=== PATIENT | male | born 1940 | race Caucasian/White ===

== ENCOUNTER 2017-09-20 18:37 | Emergency (ER) | payer MEDICARE, BC ==
[~2017-09-20] VITALS: Ht 172.7 cm; Wt 100.2 kg
[~2017-09-20 18:37] MED LIST: AZIT500 PO; CITA20 PO; CYCL10 PO; DIAZ5 PO; DOCU100 PO; GABA300 PO; GABA600 PO; HYDCHL50 PO; IBUP600 PO; INSN100I SC; INSR10I SC; LOSA50 PO; MULVITA PO; MULVITMINF PO; Mobic15 MG PO; NITR.4SL SL; OMEP20ER PO; OXYACE5T PO; PIOG30 PO; PRAZ2 PO; ROSU10TA PO; RXOXYACE PO; TRAZ100 PO; TRAZ50; TRIA50 PO; TRIHYD5075 PO; Ultram50 MG PO
== END 2017-09-20 19:05 | disposition home or self-care (01) ==
LOC: ER 18:37
DX: I83.018 Varicose veins of right lower extremity with ulcer other part of lower leg (principal); I10 Essential (primary) hypertension; E11.9 Type 2 diabetes mellitus without complications; E78.5 Hyperlipidemia, unspecified; Z79.899 Other long term (current) drug therapy; Z87.891 Personal history of nicotine dependence
CPT/HCPCS: 99282

== ENCOUNTER 2019-09-14 17:01 | Emergency (ER) | payer MEDICARE, BC ==
[~2019-09-14] VITALS: Ht 172.7 cm; Wt 91.2 kg
== END 2019-09-14 17:50 | disposition home or self-care (01) ==
LOC: ER 17:01
DX: H92.01 Otalgia, right ear (principal); I10 Essential (primary) hypertension; E11.9 Type 2 diabetes mellitus without complications; E78.5 Hyperlipidemia, unspecified; Z79.899 Other long term (current) drug therapy; Z87.891 Personal history of nicotine dependence
CPT/HCPCS: 99282

== ENCOUNTER 2020-04-14 12:49 | Emergency (ER) | payer MEDICARE, BC ==
[~2020-04-14] VITALS: Ht 172.7 cm; Wt 90.7 kg
== END 2020-04-14 15:52 | disposition home or self-care (01) ==
LOC: ER 12:49
DX: S61.412A Laceration without foreign body of left hand, initial encounter (principal); S80.02XA Contusion of left knee, initial encounter; S80.211A Abrasion, right knee, initial encounter; I10 Essential (primary) hypertension; E11.9 Type 2 diabetes mellitus without complications; E78.5 Hyperlipidemia, unspecified; Z79.899 Other long term (current) drug therapy; Z87.891 Personal history of nicotine dependence; Z23 Encounter for immunization; W01.0XXA Fall on same level from slipping, tripping and stumbling without subsequent striking against object, initial encounter; Y93.01 Activity, walking, marching and hiking; Y92.480 Sidewalk as the place of occurrence of the external cause
CPT/HCPCS: 73562-LT; 90471; 90714; 99283-25

== ENCOUNTER 2020-04-29 19:09 | Emergency (ER) | payer OTHER, MEDICARE, BC ==
[~2020-04-29] VITALS: Ht 172.7 cm; Wt 90.7 kg
[2020-04-29] MEDS ORDERED: MECL25 PO (19:27)
[2020-04-29] MEDS ORDERED: LOSA25 PO (19:28)
[2020-04-29] MEDS ORDERED: METO25ER PO (19:28)
[2020-04-29] MEDS ORDERED: HYDCHL25 PO (19:28)
[2020-04-29] MEDS ORDERED: AMLO5 PO (19:29)
[2020-04-29] MEDS ORDERED: SERT25 PO (19:29)
[2020-04-29] MEDS ORDERED: SEROQUEL100 MG PO (19:30)
[2020-04-29 20:00] LABS: BASOPHILS ABSOLUTE AUTO 0.04 K/mm3 (0.00-0.23); BASOPHILS PERCENT AUTO 1 % (0-2); EOSINOPHILS ABSOLUTE AUTO 0.13 K/mm3 (0.00-0.68); EOSINOPHILS PERCENT AUTO 2 % (0-6); Hematocrit 44.6 % (37.0-53.0); Hemoglobin 14.4 g/dL (13.5-17.5); IMMATURE GRAN ABSOLUTE AUTO 0.03 K/mm3 (0.00-0.10); IMMATURE GRAN PERCENT AUTO 1 % (0-1); LYMPHOCYTES ABSOLUTE AUTO 1.57 K/mm3 (0.84-5.20); LYMPHOCYTES PERCENT AUTO 25 % (21-46); MONOCYTES ABSOLUTE AUTO 0.51 K/mm3 (0.16-1.47); MONOCYTES PERCENT AUTO 8 % (4-13); Mean Corpuscular HGB 30.6 pg (26.0-34.0); Mean Corpuscular HGB Conc 32.3 g/dL (31.5-36.5); Mean Corpuscular Volume 95 fL (80-100); Mean Platelet Volume 12.6 fL (9.1-12.4); NEUTROPHILS ABSOLUTE AUTO 4.01 K/mm3 (1.96-9.15); NEUTROPHILS PERCENT AUTO 64 % (41-73); Platelet Count 165 K/mm3 (150-400); RDW Coefficient Variation 12.2 % (11.7-14.2); RDW Standard Deviation 42.9 fL (35.1-46.3); Red Blood Cell Count 4.71 M/mm3 (4.30-5.90); White Blood Cell Count 6.29 K/mm3 (4.00-11.30)
[2020-04-29 20:13] LABS: Alanine Aminotransfer (ALT/SGP 23 U/L (12-78); Albumin, Blood 3.7 g/dL (3.4-5.0); Albumin/Globulin Ratio 1.2 (0.8-1.8); Alk Phos 84 U/L (50-136); Anion Gap 6 mmol/L (6-16); Aspartate Aminotrans (AST/SGOT 13 U/L (12-37); Bilirubin, Total 0.4 mg/dL (0.1-1.0); Blood Urea Nitrogen 37 mg/dL (8-24); Bun/Creatinine Ratio 21.3 (12.0-20.0); CO2, Blood 25 mmol/L (21-32); Calcium, Blood 9.6 mg/dL (8.5-10.1); Chloride, Blood 117 mmol/L (98-108); Creatinine, Blood 1.74 mg/dL (0.60-1.20); Globulin, Blood 3.1 g/dL (2.2-4.0); Glomerular Filtration Rate 41 (60-); Glucose, Blood 130 mg/dL (70-99); Magnesium, Blood 2.5 mg/dL (1.6-2.4); Potassium, Blood 4.4 mmol/L (3.5-5.5); Sodium, Blood 148 mmol/L (136-145); Total Protein, Blood 6.8 g/dL (6.4-8.2); Troponin I <0.015 ng/mL (0.000-0.040)
== END 2020-04-29 21:32 | disposition home or self-care (01) ==
LOC: ER 19:09
PROVIDERS: Emergency Medicine
DX: R07.9 Chest pain, unspecified (principal); M25.512 Pain in left shoulder; N28.9 Disorder of kidney and ureter, unspecified; I10 Essential (primary) hypertension; E11.9 Type 2 diabetes mellitus without complications; E78.5 Hyperlipidemia, unspecified; Z87.891 Personal history of nicotine dependence; Z79.899 Other long term (current) drug therapy
CPT/HCPCS: 36415; 71046; 80053; 83735; 83880; 84484; 85025; 93005; 93010; 96360; 99285-25; J7030

== ENCOUNTER 2024-06-24 09:33 | Emergency (ER) | payer OTHER ==
[~2024-06-24] VITALS: Ht 175.3 cm; Wt 72.6 kg
[~2024-06-24 09:33] MED LIST changes: +AMLO5 PO; +CEFP200 PO; +Crestor40 MG PO; +HYDCHL25 PO; +LOSA25 PO; +MECL25 PO; +METO25ER PO; +SEROQUEL100 MG PO; +SERT25 PO
[2024-06-24 10:19] VITALS: BP 190/75
[2024-06-24] MEDS ORDERED: NASAL SPRAY88 ML NS (10:34)
[2024-06-24] MEDS ORDERED: Flomax0.4 MG PO (10:34)
[2024-06-24] MEDS ORDERED: OXYM.05NI (10:35)
[2024-06-24] MEDS ORDERED: METF500 PO (10:35)
[2024-06-24] MEDS ORDERED: MEMA5TAB PO (10:35)
[2024-06-24] MEDS ORDERED: LEVSOD25 PO (10:36)
[2024-06-24] MEDS ORDERED: GABA300 PO (10:36)
[2024-06-24] MEDS ORDERED: Erythromycin 2%30 GM TP (10:37)
[2024-06-24] MEDS ORDERED: THERA-D2000 UNIT PO (10:38)
[2024-06-24] MEDS ORDERED: ASPI81CH PO (10:38)
[2024-06-24] MEDS ORDERED: ACET500 PO (10:39)
== END 2024-06-24 10:25 | disposition home or self-care (01) ==
LOC: ER 09:33
DX: T81.89XA Other complications of procedures, not elsewhere classified, initial encounter (principal); L98.499 Non-pressure chronic ulcer of skin of other sites with unspecified severity; E11.9 Type 2 diabetes mellitus without complications; I10 Essential (primary) hypertension; E78.5 Hyperlipidemia, unspecified; Z87.891 Personal history of nicotine dependence; Z79.890 Hormone replacement therapy; Z79.84 Long term (current) use of oral hypoglycemic drugs; Z79.82 Long term (current) use of aspirin; Z79.899 Other long term (current) drug therapy
CPT/HCPCS: 99282

== ENCOUNTER 2024-07-29 09:38 | Emergency (ER) | payer OTHER ==
[~2024-07-29] VITALS: Ht 167.6 cm; Wt 79.4 kg
[~2024-07-29 09:38] MED LIST changes: +ACET500 PO; +ASPI81CH PO; +Erythromycin 2%30 GM TP; +Flomax0.4 MG PO; +LEVSOD25 PO; +MEMA5TAB PO; +METF500 PO; +NASAL SPRAY88 ML NS; +OXYM.05NI; +THERA-D2000 UNIT PO
[2024-07-29 11:05] LABS: BASOPHILS ABSOLUTE AUTO 0.03 K/mm3 (0.00-0.23); BASOPHILS PERCENT AUTO 1 % (0-2); EOSINOPHILS ABSOLUTE AUTO 0.13 K/mm3 (0.00-0.68); EOSINOPHILS PERCENT AUTO 2 % (0-6); Hematocrit 43.4 % (37.0-53.0); Hemoglobin 14.6 g/dL (13.5-17.5); IMMATURE GRAN ABSOLUTE AUTO 0.01 K/mm3 (0.00-0.10); IMMATURE GRAN PERCENT AUTO 0 % (0-1); LYMPHOCYTES ABSOLUTE AUTO 1.42 K/mm3 (0.84-5.20); LYMPHOCYTES PERCENT AUTO 22 % (21-46); MONOCYTES ABSOLUTE AUTO 0.47 K/mm3 (0.16-1.47); MONOCYTES PERCENT AUTO 7 % (4-13); Mean Corpuscular HGB 31.5 pg (26.0-34.0); Mean Corpuscular HGB Conc 33.6 g/dL (31.5-36.5); Mean Corpuscular Volume 94 fL (80-100); Mean Platelet Volume 11.5 fL (9.1-12.4); NEUTROPHILS ABSOLUTE AUTO 4.43 K/mm3 (1.96-9.15); NEUTROPHILS PERCENT AUTO 68 % (41-73); Platelet Count 150 K/mm3 (150-400); RDW Coefficient Variation 11.9 % (11.7-14.2); Red Blood Cell Count 4.64 M/mm3 (4.30-5.90); White Blood Cell Count 6.49 K/mm3 (4.00-11.30)
[2024-07-29 11:28] LABS: Albumin, Blood 3.5 g/dL (3.4-5.0); Albumin/Globulin Ratio 1.2 (0.8-1.8); Bilirubin, Total 0.5 mg/dL (0.1-1.0); Creatinine, Blood 0.9 mg/dL (0.60-1.20); Globulin, Blood 2.9 g/dL (2.2-4.0); Potassium, Blood 4.2 mmol/L (3.5-5.5); Total Protein, Blood 6.4 g/dL (6.4-8.2)
[2024-07-29 13:16] VITALS: BP 159/66
== END 2024-07-29 13:17 | disposition home or self-care (01) ==
LOC: ER 09:38
PROVIDERS: Student in an Organized Health Care Education/Training Program
DX: Z04.3 Encounter for examination and observation following other accident (principal); I10 Essential (primary) hypertension; E11.9 Type 2 diabetes mellitus without complications; E78.5 Hyperlipidemia, unspecified; Z87.891 Personal history of nicotine dependence; Z79.84 Long term (current) use of oral hypoglycemic drugs; Z79.890 Hormone replacement therapy; Z79.899 Other long term (current) drug therapy
CPT/HCPCS: 80053; 85025; 99285

== ENCOUNTER 2025-06-03 12:44 | Inpatient (IN) | payer OTHER ==
[~2025-06-03] VITALS: Ht 165.1 cm; Wt 81.9 kg
[2025-06-03 13:54] LABS: BASOPHILS ABSOLUTE AUTO 0.04 K/mm3 (0.00-0.23); BASOPHILS PERCENT AUTO 0 % (0-2); EOSINOPHILS ABSOLUTE AUTO 0.08 K/mm3 (0.00-0.68); EOSINOPHILS PERCENT AUTO 1 % (0-6); Hematocrit 43.1 % (37.0-53.0); Hemoglobin 14.1 g/dL (13.5-17.5); IMMATURE GRAN ABSOLUTE AUTO 0.14 K/mm3 (0.00-0.10); IMMATURE GRAN PERCENT AUTO 1 % (0-1); LYMPHOCYTES ABSOLUTE AUTO 0.94 K/mm3 (0.84-5.20); LYMPHOCYTES PERCENT AUTO 7 % (21-46); MONOCYTES ABSOLUTE AUTO 0.77 K/mm3 (0.16-1.47); MONOCYTES PERCENT AUTO 6 % (4-13); Mean Corpuscular HGB Conc 32.7 g/dL (31.5-36.5); Mean Corpuscular Volume 90 fL (80-100); NEUTROPHILS ABSOLUTE AUTO 11.93 K/mm3 (1.96-9.15); NEUTROPHILS PERCENT AUTO 86 % (41-73); NRBC ABSOLUTE 0.00 K/mm3 (0.00-0.02); NRBC Auto 0.0 /100 WBC (0.0-0.2); Platelet Count 285 K/mm3 (150-400); RDW Coefficient Variation 11.9 % (11.7-14.2); RDW Standard Deviation 39.7 fL (35.1-46.3)
[2025-06-03 14:11] LABS: Alanine Aminotransfer (ALT/SGP 39.0 U/L (12-78); Albumin, Blood 2.5 g/dL (3.4-5.0); Albumin/Globulin Ratio 0.7 (0.8-1.8); Anion Gap 7.0 mmol/L (3-11); Aspartate Aminotrans (AST/SGOT 24.0 U/L (12-37); Bilirubin, Total 0.7 mg/dL (0.1-1.0); Blood Urea Nitrogen 33.0 mg/dL (8-24); CO2, Blood 30.0 mmol/L (21-32); Calcium, Blood 9.2 mg/dL (8.5-10.1); Chloride, Blood 100.0 mmol/L (98-108); Creatinine, Blood 1.01 mg/dL (0.60-1.20); Globulin, Blood 3.7 g/dL (2.2-4.0); Glucose, Blood 223.0 mg/dL (70-99); Potassium, Blood 3.4 mmol/L (3.5-5.5); Sodium, Blood 134.0 mmol/L (136-145); Total Protein, Blood 6.2 g/dL (6.4-8.2)
[2025-06-03 14:16] LABS: Magnesium, Blood 2.4 mg/dL (1.6-2.4)
[2025-06-03] MEDS ORDERED: Potassium Chloride 10 Meq Tablet SA PO ONE (15:45)
[2025-06-03] MEDS ORDERED: Ondansetron HCl 2 MG / ML 2ML Vial IV PRN (16:20)
[2025-06-03] MEDS ORDERED: FLU VACC TS2025(65UP)/MF59C/PF 45 MCG/0.5 ML SYRINGE IM SCH (16:20)
[2025-06-03] MEDS ORDERED: HydrALAZINE HCl 20 MG / ML 1ML Vial IV PRN (16:35)
[2025-06-03] MEDS ORDERED: Piperacillin/Tazobactam Sod 3.375 GM in NS 100 ML IV SCH (17:00)
--- NOTE | 2025-06-03 17:30 | NUR ---
PALLIATIVE CARE NOTE: CONSULT RECIEVED FOR AD/POLST. REVIEWED MEDICAL RECORD. NO POLST/AD FOUND ON FILE IN MEDICAL RECORD OR WITH OPR. PT AWAITING ROOM FOR ADMISSION. PT REPORTEDLY WAS FOUND DOWN ON GROUND BY DAUGHTER AND SENT TO ER DUE TO PT INABILITY TO CARE FOR SELF AT THIS TIME. HE ALSO HAS PERIANAL ABSCESS REQUIRING ABX TREATMENT.
[2025-06-03 17:45] LABS: Source, Urine Clean Catch
[2025-06-03 17:49] LABS: Bilirubin, Urine Neg (Neg); Color, Urine Yellow (P-Yellow); Glucose Qualitative, Urine 1+ (Neg); Ketones, Urine 2+ (Neg); Leukocyte Esterase, Urine 3+ (Neg); Protein, Urine 4+ (Neg); Specific Gravity, Urine 1.020 (1.003-1.022); Urobilinogen, Urine NORM (Normal)
[2025-06-03 17:59] LABS: Red Blood Cells, Urine 0-2 /hpf (0-2); White Blood Cells, Urine TNTC /hpf (0-5)
[2025-06-03 18:31] VITALS: BP 133/62
--- NOTE | 2025-06-03 18:36 | NUR ---
ARRIVAL TO SURG FLOOR TO FLOOR VIA GURNEY. A&O x1-2, ABLE TO IDENTIFY SELF & PLACE. PERIANAL ABCESS NOTED ON COCCYX w/GREEN PURULANT DRAINAGE. PICS IN CHART. ATTENDS IN PLACE. USES DENTURES - PRESENT ON ADMISSION. BILATERAL REDNESS ON HIPS & HEELS - PICS IN CHART. USES URINAL & BEDPAN FOR VOID. SNACKS & DRINKS GIVEN. PLAN FOR NPO @ 0000. CURRENTLY RESTING IN BED w/CALL LIGHT WITHIN REACH.
[2025-06-03 19:33] VITALS: BP 142/65
[2025-06-03] MEDS ORDERED: Lactobacil 2-S.Thermo-Bifido 1 1 Cap PO SCH (21:00)
[2025-06-03 23:59] VITALS: BP 128/51
[2025-06-04] VITALS (15 sets, daily range): BP systolic 113–172; BP diastolic 40–99
[2025-06-04 03:59] LABS: Hematocrit 38.5 % (37.0-53.0); Hemoglobin 12.9 g/dL (13.5-17.5); Mean Corpuscular HGB Conc 33.5 g/dL (31.5-36.5); Mean Corpuscular Volume 89 fL (80-100); NRBC ABSOLUTE 0.00 K/mm3 (0.00-0.02); NRBC Auto 0.0 /100 WBC (0.0-0.2); Platelet Count 247 K/mm3 (150-400); RDW Coefficient Variation 11.9 % (11.7-14.2); RDW Standard Deviation 38.8 fL (35.1-46.3)
[2025-06-04 04:33] LABS: Anion Gap 10.0 mmol/L (3-11); Blood Urea Nitrogen 32.0 mg/dL (8-24); CO2, Blood 25.0 mmol/L (21-32); Calcium, Blood 9.2 mg/dL (8.5-10.1); Chloride, Blood 103.0 mmol/L (98-108); Creatinine, Blood 1.0 mg/dL (0.60-1.20); Glucose, Blood 277.0 mg/dL (70-99); Potassium, Blood 3.2 mmol/L (3.5-5.5); Sodium, Blood 135.0 mmol/L (136-145)
--- NOTE | 2025-06-04 05:32 | NUR ---
SHIFT SUMMARY NO ACUTE EVENTS OVERNIGHT. PT A&OX1-2, UNKNOWN BASELINE. PT TOLERATED PO INTAKE FOR EVENING SNACK. PT NPO AT MIDNIGHT IN ANTICIPATION OF PROCEDURE TODAY. PT TELE [id number]. PT PHOTOS IN CHART FROM DAY SHIFT FOR ABSCESS AND L HIP.
[2025-06-04] MEDS ORDERED: Insulin Human Lispro 100 Units/ML 3ML Syringe SC SCH ×2 (07:30→09:50)
[2025-06-04] MEDS ORDERED: Cholecalciferol 1000 Unit Tablet (=25MCG) PO SCH (09:00)
[2025-06-04] MEDS ORDERED: Enoxaparin 40 MG/0.4 ML SYR SC SCH (09:00)
[2025-06-04] MEDS ORDERED: Insulin Regular 100 UNIT/ML 10ML Vial SC SCH (09:20)
[2025-06-04] MEDS ORDERED: Bupivacaine 0.5% HCl 5 MG/ML 30MLVIAL ONE (15:17)
[2025-06-04] MEDS ORDERED: Rocuronium Bromide 10 MG/ML 5ML Injection IV ONE (15:27)
[2025-06-04] MEDS ORDERED: Ondansetron HCl 2 MG / ML 2ML Vial ONE (15:27)
[2025-06-04] MEDS ORDERED: Metoclopramide HCl 5MG / ML 2ML Vial ONE (15:27)
[2025-06-04] MEDS ORDERED: Ondansetron HCl 2 MG / ML 2ML Vial IV PRN (15:30)
--- NOTE | 2025-06-04 15:30 | NUR ---
PT TRANSPORTED TO [facility] VIA BED. DAUGHTER AT BEDSIDE TO HELP ANSWER QUESTIONS AND SIGN SURGICAL CONSENT. RING REMOVED, PLACED IN BAGGIE WITH PATIENT LABEL AND GIVEN TO DAUGHTER. LUNG SOUNDS CLEAR. PATIENT ALERT, APPROPRIATE. ABLE TO STATE NAME AND BIRTHDAY, UNSURE OF PLACE.
[2025-06-04] MEDS ORDERED: Morphine Sulfate 4 MG/1 ML Injection IV PRN (15:35)
[2025-06-04] MEDS ORDERED: HYDROmorphone HCl/Pf 1MG SYR IV PRN (15:35)
[2025-06-04] MEDS ORDERED: FentaNYL Citrate 50 MCG/ML 2 ML Injection IV PRN ×2 (15:35)
[2025-06-04] MEDS ORDERED: Sugammadex Sodium 200 MG/2ML SDV (100 MG/ML) ONE (16:10)
[2025-06-04] MEDS ORDERED: HYDROcodone 5-APAP 325 TAB PO PRN (16:30)
--- NOTE | 2025-06-04 18:19 | NUR ---
ARRIVAL TO SURG FLOOR TO FLOOR VIA HOSP BED AT APPROXIMATELY 1655. A&O x1-2, EASILY REDIRECTABLE, ABLE TO MAKE NEEDS KNOWN. STATES NO PAIN AT THIS TIME. COCCYX w/VERA DRESSING, C/D/I. SNACKS & DRINKS GIVEN. BED ALARM ON, CALL LIGHT WITHIN REACH.
[2025-06-04] MEDS ORDERED: NS 250 ML IV PRN (20:40)
[2025-06-04] MEDS ORDERED: Oxymetazoline 0.05% Nasal Relief Spray 15mL BTL PRN (21:00)
[2025-06-05 00:46] VITALS: BP 114/53
[2025-06-05] MEDS ORDERED: Piperacillin/Tazobactam Sod 3.375 GM in NS 100 ML IV SCH (03:00)
--- NOTE | 2025-06-05 03:59 | NUR ---
SHIFT SUMMARY PT S/P I&D OF ABCESS. PT HAS RESTED T/O THE NIGHT. PT CONFUSED AND WAS ANXIOUS AT THE START OF THE SHIFT. HITTING CALL LIGHT FREQUENTLY. PT ORIENTED TO SELF, AND PLACE. SPEECH MOSTLY NONSENSICAL, BUT FOLLOWS DIRECTIONS WELL. PT DENIES PAIN. VERA DRAIN WITH SS DISCHARGE. IV ANTIBIOTICS. VITALS STABLE. BED ALARM ON. BED IN LOWEST POSITION, CALL LIGHT WITHIN REACH.
[2025-06-05 04:43] VITALS: BP 122/50
[2025-06-05 05:26] LABS: Anion Gap 8.0 mmol/L (3-11); Blood Urea Nitrogen 21.0 mg/dL (8-24); CO2, Blood 28.0 mmol/L (21-32); Calcium, Blood 8.4 mg/dL (8.5-10.1); Chloride, Blood 108.0 mmol/L (98-108); Creatinine, Blood 0.99 mg/dL (0.60-1.20); Glucose, Blood 249.0 mg/dL (70-99); Potassium, Blood 3.5 mmol/L (3.5-5.5); Sodium, Blood 140.0 mmol/L (136-145)
[2025-06-05 07:24] VITALS: BP 161/55
[2025-06-05] MEDS ORDERED: Insulin Human Lispro 100 Units/ML 3ML Syringe SC SCH (07:30)
[2025-06-05 10:29] VITALS: BP 123/59
--- NOTE | 2025-06-05 13:11 | NUR ---
DISCUSSED CASE WITH [facility] AND PROVIDER. ROUNDED ON PATIENT. HE WAS SITTING UP TO THE CHAIR, AND HAD EATEN HIS LUNCH. PER DISCUSSION WITH PROVIDER NO ACUTE NEEDS FROM PC AT THIS TIME. PATIENT IS STABLE AND PENDING DISCHARGE.
[2025-06-05 15:05] VITALS: BP 129/62
[2025-06-05] MEDS ORDERED: MetFORMIN HCl 500 mg PO SCH (17:00)
--- NOTE | 2025-06-05 17:26 | NUR ---
SHIFT SUMMARY ADMITTED ON 06/03 FOR PERIANAL ABCESS. POD 1 I&D. RECTUM w/VERA, ABD PAD & GAUZE, C/D/I. DRESSING CHANGE x2 TODAY. TOLERATING CONSISTANT CARB DIET WELL. A&O x1-2 - ABLE TO MAKE NEEDS KNOWN. ABLE TO AMB TO BATHROOM FOR VOID. ON TELE - NO EVENTS TODAY. MINIMAL PAIN TODAY - CONTROLLED WELL PER EMAR. CURRENTLY RESTING IN BED w/CALL LIGHT WITHIN REACH.
[2025-06-05 19:35] VITALS: BP 133/65
[2025-06-06 00:12] VITALS: BP 111/55
[2025-06-06 04:05] VITALS: BP 147/67
--- NOTE | 2025-06-06 04:25 | NUR ---
SHIFT SUMMARY PT HAS RESTED MOST OF THE NIGHT. CONFUSED, BED ALARM IN PLACE FOR SAFETY. PT DOES NOT USE CALL LIGHT FOR ASSISTANCE AND ATTEMPTS TO GET OOB. SURGICAL SITE WNL. VERA DRAIN IN PLACE, DRAINAGE FROM SITE DECREASING. DRESSING CHANGED PRN. PLAN OF CARE REMAINS UNCHANGED. BED IN LOWEST POSITION, CALL LIGHT WITHIN REACH.
[2025-06-06 07:43] VITALS: BP 127/55
[2025-06-06] MEDS ORDERED: AMOCLA875 PO (10:07)
[2025-06-06] MEDS ORDERED: VISBIOME 112.51 EACH PO (10:08)
--- NOTE | 2025-06-06 11:11 | NUR ---
DISCHARGE NOTE PT IS A/OX2 BUT PLEASANTLY CONFUSED. PT IS DRESSED, TOLERATING PO INTAKE. DAUGHTER IN ROOM. PT IS SBA W/ FWW FOR SAFETY WHILE IN HOSPITAL. TOLERATING PO INTAKE, DENIES N/V. BOTH PT AND DAUGHTER VERBALIZED UNDERSTANDING OF DC INSTRUCTIONS. IV REMOVED, TELE OFF, ALL PERSONAL BELONGINGS TAKEN BY DAUGHTER. ESCORTED OUT VIA WC AT APPROX 1100.
== END 2025-06-06 11:01 | disposition home health service (06) | DRG 394 ==
LOC: ER 12:44 → SURS 16:17
PROVIDERS: Student in an Organized Health Care Education/Training Program; Surgery; ADMIT Internal Medicine
PROC: 3E03329 Introduction of Other Anti-infective into Peripheral Vein, Percutaneous Approach (ICD-10-PCS; 2025-06-03)
PROC: 3E02340 Introduction of Influenza Vaccine into Muscle, Percutaneous Approach (ICD-10-PCS; 2025-06-03)
PROC: 0J9B0ZZ Drainage of Perineum Subcutaneous Tissue and Fascia, Open Approach (ICD-10-PCS; principal; 2025-06-04 15:00)
DX: K61.0 Anal abscess (principal); I96 Gangrene, not elsewhere classified; M62.82 Rhabdomyolysis; I10 Essential (primary) hypertension; E11.9 Type 2 diabetes mellitus without complications; E78.5 Hyperlipidemia, unspecified; E03.9 Hypothyroidism, unspecified; D72.829 Elevated white blood cell count, unspecified; N40.0 Benign prostatic hyperplasia without lower urinary tract symptoms; F03.90 Unspecified dementia, unspecified severity, without behavioral disturbance, psychotic disturbance, mood disturbance, and anxiety; Z60.2 Problems related to living alone; E87.6 Hypokalemia; B95.1 Streptococcus, group B, as the cause of diseases classified elsewhere; Z23 Encounter for immunization; Z79.84 Long term (current) use of oral hypoglycemic drugs; Z79.899 Other long term (current) drug therapy; Z79.82 Long term (current) use of aspirin; Z79.890 Hormone replacement therapy; Z87.891 Personal history of nicotine dependence
CPT/HCPCS: 36415; 72193; 73030; 80048; 80053; 81001; 82550; 82947; 83735; 85025; 85027; 87070; 87075; 87077; 87086; 87147; 87186; 87205; 93005; 93010; 97110; 97116; 97162; 97530; 99285-25; A9270; J1650; J2405; J2543; J2704; J2765; J3480; J7050; J7120; Q9967